=== PATIENT | male | born 1990 | race Caucasian/White ===

== ENCOUNTER 2018-03-04 18:49 | Emergency (ER) | payer SELFPAY ==
[~2018-03-04] VITALS: Ht 175.3 cm; Wt 64.0 kg
[2018-03-04] MEDS ORDERED: DEXAMETHASONE 4MG/ML 1ML VIAL IM ONE (21:30)
[2018-03-04 22:52] VITALS: BP 102/60
== END 2018-03-04 23:00 | disposition home or self-care (01) ==
LOC: ER 18:49
DX: B35.3 Tinea pedis (principal); B35.4 Tinea corporis; T78.49XA Other allergy, initial encounter; X58.XXXA Exposure to other specified factors, initial encounter; Z87.891 Personal history of nicotine dependence
CPT/HCPCS: 96372; 99283; J1100; Z7610

== ENCOUNTER 2022-12-31 14:35 | Emergency (ER) | payer MEDICAID ==
[~2022-12-31] VITALS: Ht 175.3 cm; Wt 67.0 kg
[2022-12-31] MEDS ORDERED: CLOT113C TP (16:41)
[2022-12-31] MEDS ORDERED: CLOT15CR27 TP (16:41)
[2022-12-31 17:19] VITALS: BP 133/70
== END 2022-12-31 17:21 | disposition home or self-care (01) ==
LOC: ER 14:35
DX: B35.3 Tinea pedis (principal); Z98.890 Other specified postprocedural states
CPT/HCPCS: 99281